=== PATIENT | female | born 1935 | race Caucasian/White ===

== ENCOUNTER 2019-08-29 21:54 | Inpatient (IN) | payer OTHER ==
[~2019-08-29] VITALS: Ht 172.7 cm; Wt 89.8 kg
[2019-08-29 21:55] VITALS: BP_SYST 152
--- NOTE | 2019-08-29 21:55 | NUR ---
Placed in room 4 . Placed on radiation monitor, blood pressure machine and pulse oximeter. To gown for exam. Side rails up.
--- NOTE | 2019-08-29 21:58 | NUR ---
Patient BIB [facility] from [facility] c/o chest pain that lasted about 15 minutes. Pt states she was at home and suddenly felt dizzy and had chest pain, non-radiating, non provoked. 10minutes prior to arriving, chest pain suddenly disappeared. No medications were given en route. Pt denies N/V, fever. Pt came in with 20 gauge to left AC placed by [facility]. NO other injuries/complaints per patient or noted.
[2019-08-29] MEDS ORDERED: AMLO2.5T50 PO (22:17)
[2019-08-29] MEDS ORDERED: ARIP5TAB10 PO (22:18)
[2019-08-29] MEDS ORDERED: CLOP75TA32 PO (22:19)
[2019-08-29] MEDS ORDERED: DICL1KIT TP ×2 (22:20→22:28)
[2019-08-29] MEDS ORDERED: EZET10TA30 PO (22:20)
[2019-08-29] MEDS ORDERED: METO50TA7 PO (22:21)
[2019-08-29] MEDS ORDERED: OXCA300T38 PO (22:21)
[2019-08-29] MEDS ORDERED: OXYB10TA4 PO (22:22)
[2019-08-29] MEDS ORDERED: PARO-41 PO (22:23)
[2019-08-29] MEDS ORDERED: ACET-73 PO (22:25)
[2019-08-29] MEDS ORDERED: DIPH25CA83 PO (22:27)
[2019-08-29] MEDS ORDERED: BISM262O28 PO (22:29)
[2019-08-29] MEDS ORDERED: NITSL SL (22:30)
--- NOTE | 2019-08-29 22:31 | NUR ---
Medication reconciliation completed with information provided by [facility]. Any prior medication reconciliation on file was reviewed and corrected.
[2019-08-29 22:47] LABS: BASOPHILS # (AUTO) 0.1 K/uL (0.0-0.2); BASOPHILS % (AUTO) 1.3 % (0.0-2.0); EOSINOPHILS # (AUTO) 0.2 K/uL (0.0-0.4); EOSINOPHILS % (AUTO) 2.8 % (0.0-4.0); HEMATOCRIT 38.3 % (36-48); HEMOGLOBIN 12.8 g/dL (12.0-16.0); LYMPHOCYTES % (AUTO) 33.5 % (20.5-51.5); MEAN CORPUSCULAR HEMOGLOBIN 29 pg (27-31); MEAN CORPUSCULAR HGB CONC 34 % (32-36); MEAN CORPUSCULAR VOLUME 87 fL (79.0-98.0); MONOCYTES # (AUTO) 0.7 K/uL (0.0-1.0); MONOCYTES % (AUTO) 12.5 % (1.7-9.3); NEUTROPHILS # (AUTO) 2.9 K/uL (1.8-7.7); NEUTROPHILS % (AUTO) 49.9 % (40.0-70.0); PLATELET COUNT (AUTO) 190 K/uL (130-430); RED BLOOD CELL COUNT(AUTO) 4.39 MIL/uL (4.2-6.2); RED CELL DISTRIBUTION WIDTH 13.1 % (9.0-15.0); WHITE BLOOD COUNT (AUTO) 5.9 K/uL (4.8-10.8)
[2019-08-29 23:02] LABS: ANION GAP 8 (5-15); CALCIUM 8.6 mg/dL (8.4-11.0); CHLORIDE 101 mmol/L (98-107); CREATININE 1.02 mg/dL (0.55-1.30); GLUCOSE 110 mg/dL (70-99); POTASSIUM 3.4 mmol/L (3.5-5.1); SODIUM SERUM 138 mmol/L (136-145); UREA NITROGEN, BLOOD 20 mg/dL (8-21)
[2019-08-29 23:06] LABS: ALANINE AMINOTRANSFERASE 25 U/L (12-78); ALBUMIN 3.6 g/dL (3.4-4.8); ASPARTATE AMINOTRANSFERASE 20 U/L (10-37); TOTAL BILIRUBIN 0.2 mg/dL (0.0-1.0)
--- NOTE | 2019-08-30 | NUR ---
ER Dr. Stevens at bedside examining patient.
--- NOTE | 2019-08-30 00:05 | NUR ---
Patient resting comfortably in hospital bed. No acute distress, will continue to monitor.
--- NOTE | 2019-08-30 01:30 | NUR ---
Assisted patient to restroom and [facility]. No acute distress, will continue to monitor.
--- NOTE | 2019-08-30 02:15 | NUR ---
Patient resting comfortably in bed. No acute distress, will continue to monitor.
--- NOTE | 2019-08-30 03:14 | NUR ---
ER Dr. Stevens at bedside re-examining patient.
--- NOTE | 2019-08-30 04:20 | NUR ---
Patient has BP of 191/68. Pt denies chest pain, SOB, dizziness or N/V. Dr. Stevens made aware.
[2019-08-30] MEDS ORDERED: cloNIDine HCL 0.1 MG TABLET PO ONE (04:30)
--- NOTE | 2019-08-30 04:30 | NUR ---
Medication was given, pt tolerated well. No adverse reaction, will continue to monitor.
--- NOTE | 2019-08-30 05:13 | NUR ---
Patient will be admitted to care of Dr. David Lamb. Admitted to Telemetry unit. Belongings list completed. Complete and up to date summary report printed. SBAR report to be given at bedside with opportunity for questions.
--- NOTE | 2019-08-30 05:48 | NUR ---
Patient was moved to bed 8 in hospital bed. Patient will be a TELE hold in the ER.
--- NOTE | 2019-08-30 05:48 | NUR ---
Patient was placed on a wash oil pump operator helper, pulse oximetry, and blood pressure monitor.
--- NOTE | 2019-08-30 06:39 | NUR ---
Patient is resting comfortably in bed. No acute distress, will continue to monitor.
--- NOTE | 2019-08-30 07:06 | NUR ---
Gave report to THUY Duran. All care endorsed.
--- NOTE | 2019-08-30 07:30 | NUR ---
Patient is resting comfortably in bed. No acute distress at this time. Will continue to monitor.
--- NOTE | 2019-08-30 08:24 | NUR ---
Patient ambulated to the bathroom with a steady gait.
--- NOTE | 2019-08-30 09:04 | NUR ---
2D-echo in progress at bedside. Patient tolerating it well.
--- NOTE | 2019-08-30 10:31 | NUR ---
Patient is resting comfortably in bed. No acute distress at this time. Will continue to monitor.
--- NOTE | 2019-08-30 10:43 | NUR ---
Still waiting for a call back from Dr. David Lamb.
--- NOTE | 2019-08-30 10:45 | NUR ---
3rd page for Dr. Lamb.
--- NOTE | 2019-08-30 11:55 | NUR ---
ADMISSION NOTE Received patient from ER via hui, received report from CORTEZ DALEY. Patient admitted with diagnosis of CHEST PAIN. Patient oriented to hospital routine, call light, toileting and safety-patient verbalized understanding.
--- NOTE | 2019-08-30 12:00 | NUR ---
Dr. Lamb, Y rounds assessed patient at bedside, aware of elevated blood pressure, will follow up with any new orders.
[2019-08-30 12:04] VITALS: BP_SYST 163
--- NOTE | 2019-08-30 12:05 | NUR ---
Patient will be admitted to care of Dr. Lamb. Admitted to Telemetry unit. Will go to room 108A. Belongings list completed. Complete and up to date summary report printed. SBAR report given to THUY Shine at bedside with opportunity for questions. Transfer to Tele via ACLS protocol. Registered nurse and corn lab technician present. IV present no signs or symptoms of infiltration.
--- NOTE | 2019-08-30 13:30 | NUR ---
RN rounds patient resting in bed, awake, patient denies pain, denies shortness of breath, reinforced the tape on her IV, patient has no other needs at this time, bed in lowest position, two side rails up, call light within reach, fall and aspiration precautions in place, continuing to monitor.
--- NOTE | 2019-08-30 14:47 | NUR ---
RN rounds patient resting in bed, eyes closed, breathing is even and unlabored, no signs of distress, continuing to monitor, call light is within reach of patient, bed in lowest position, two side rails up, fall precautions in place.
[2019-08-30 16:05] VITALS: BP_SYST 148
--- NOTE | 2019-08-30 16:06 | NUR ---
RN rounds patient resting in bed, awake, denies pain, vital signs taken, provided patient with ice water, no other needs at this time, bed in lowest position, two side rails up, call light within reach, fall and aspiration precautions in place.
--- NOTE | 2019-08-30 18:11 | NUR ---
Dr. Lamb,A rounds assessed patient, new orders for tomorrow noted.
[2019-08-30] MEDS ORDERED: ACETAMINOPHEN 500 MG TABLET PO PRN (18:15)
[2019-08-30] MEDS ORDERED: HYDROcodone/ACETAMIN 10-325 MG TAB PO PRN (18:15)
[2019-08-30] MEDS ORDERED: NITROGLYCERIN 0.4 MG TAB.SUBL SL PRN (18:15)
[2019-08-30] MEDS ORDERED: LORazepam 2 MG/ML VIAL IVP PRN (18:15)
[2019-08-30] MEDS ORDERED: HYDROcodone/ACETAMIN 5-325 MG TAB (NORCO/ VICODIN) PO PRN (18:15)
[2019-08-30] MEDS ORDERED: DICLOFENAC SODIUM TP PRN (18:15)
[2019-08-30] MEDS ORDERED: BISMUTH SUBSALICYLATE 240 ML BOTTLE PO PRN (18:15)
[2019-08-30] MEDS ORDERED: ONDANSETRON HCL 4 MG/2 ML VIAL IVP PRN (18:15)
[2019-08-30] MEDS ORDERED: DIPHENHYDRAMINE HCL 25 MG CAPSULE PO PRN (18:15)
--- NOTE | 2019-08-30 18:22 | NUR ---
Closing note patient resting in bed, awake, denies pain, all needs met, will endorse report to NOC shift nurse, bed in lowest position, two side rails up, call light within patient reach, fall and aspiration precautions in place.
[2019-08-30 20:02] VITALS: BP_SYST 137
[2019-08-30] MEDS: NORMAL SALINE 5 ML DISP.SYRIN IVF SCH (20:35)
[2019-08-30] MEDS: OXcarbazepine 150 MG TABLET(TRILEPTAL) PO SCH (20:35)
[2019-08-30] MEDS ORDERED: METOPROLOL SUCCINATE 50 MG TAB.SR.24H (TOPROL XL) PO SCH (21:00)
[2019-08-30] MEDS ORDERED: DICLOFENAC SODIUM TP SCH (21:00)
--- NOTE | 2019-08-30 21:45 | NUR ---
TRILEPTAL 300 MG po administer for AGITATION ANXIETY & helpful .
[2019-08-30] MEDS ORDERED: NORMAL SALINE 5 ML DISP.SYRIN IVF SCH (22:00)
--- NOTE | 2019-08-31 | NUR ---
NORCO 10/325 MG PO administer for pain GENERAL & HELPFUL .
[2019-08-31 01:00] VITALS: BP_SYST 144
--- NOTE | 2019-08-31 01:45 | NUR ---
Patient assist out of bed ambulates BRP no SOB chest movement symmetrical safety measures implemented & effective .
--- NOTE | 2019-08-31 03:17 | NUR ---
FALL MEASURES implemented call sol given to patient procedures explained SAFETY MEASURES effective .
--- NOTE | 2019-08-31 04:30 | NUR ---
Hourly Rounding patient Resting call sol given to patient chest movement symmetrical self position patient is ambulatory .
[2019-08-31] MEDS: NORMAL SALINE 5 ML DISP.SYRIN IVF SCH (05:51)
[2019-08-31 07:47] LABS: BASOPHILS # (AUTO) 0.1 K/uL (0.0-0.2); EOSINOPHILS # (AUTO) 0.3 K/uL (0.0-0.4); HEMATOCRIT 40.7 % (36-48); HEMOGLOBIN 13.7 g/dL (12.0-16.0); LYMPHOCYTES % (AUTO) 37.8 % (20.5-51.5); MEAN CORPUSCULAR HEMOGLOBIN 29 pg (27-31); MEAN CORPUSCULAR HGB CONC 34 % (32-36); MEAN CORPUSCULAR VOLUME 87 fL (79.0-98.0); MONOCYTES # (AUTO) 0.7 K/uL (0.0-1.0); MONOCYTES % (AUTO) 13.1 % (1.7-9.3); NEUTROPHILS # (AUTO) 2.2 K/uL (1.8-7.7); NEUTROPHILS % (AUTO) 43.1 % (40.0-70.0); PLATELET COUNT (AUTO) 192 K/uL (130-430); RED BLOOD CELL COUNT(AUTO) 4.68 MIL/uL (4.2-6.2); RED CELL DISTRIBUTION WIDTH 13.3 % (9.0-15.0); WHITE BLOOD COUNT (AUTO) 5.2 K/uL (4.8-10.8)
[2019-08-31 07:55] LABS: ANION GAP 5 (5-15); CALCIUM 8.8 mg/dL (8.4-11.0); CHLORIDE 103 mmol/L (98-107); GLUCOSE 94 mg/dL (70-99); POTASSIUM 3.5 mmol/L (3.5-5.1); SODIUM SERUM 138 mmol/L (136-145); UREA NITROGEN, BLOOD 13 mg/dL (8-21)
[2019-08-31 08:00] VITALS: BP_SYST 148
--- NOTE | 2019-08-31 08:00 | NUR ---
Note Pt sitting up in bed eating her breakfast. No SOB/resp distress or chest pain/discomfort was noted at this time. Tele unit attached and intact. IV in left AC intact and patent. Pt ambulates to restroom with steady gait and independently at this time. No needs noted. Call light within reach.
[2019-08-31] MEDS: OXcarbazepine 150 MG TABLET(TRILEPTAL) PO SCH (08:24)
[2019-08-31] MEDS ORDERED: EZETIMIBE 10 MG TABLET PO SCH (09:00)
[2019-08-31] MEDS ORDERED: CLOPIDOGREL BISULFATE 75 MG TABLET PO SCH (09:00)
[2019-08-31] MEDS ORDERED: OXYBUTYNIN CHLORIDE 5 MG XL TAB PO SCH (09:00)
[2019-08-31] MEDS ORDERED: PARoxetine HCL 20 MG TABLET PO SCH (09:00)
[2019-08-31] MEDS ORDERED: OXYBUTYNIN CHLORIDE 5 MG TABLET PO SCH (09:00)
[2019-08-31] MEDS ORDERED: amLODIPine BESYLATE 5 MG TABLET PO SCH (09:00)
--- NOTE | 2019-08-31 10:10 | NUR ---
Note Dr Leila Lamb called and cleared pt to be discharged home today.
--- NOTE | 2019-08-31 10:54 | NUR ---
SS NOTES: HAZARDOUS MATERIAL SPECIALIST was referred by CM to see patient for DCP. Demographic information confirmed (NOK: Lorenzo Lange, son @ [phone], Person to Notify: Koffi Lange, son @ [phone]). HAZARDOUS MATERIAL SPECIALIST met with patient at bedside. Pt was alert and oriented, and cooperative. Pt appeared to be disheveled, normal mood and speech with good eye contact. Pt's affect was appropriate and thought process was intact. Pt is an 83 y/o female who came in for chest pain. Pt is a resident at [facility] for 2 years now. Pt is independent with her ADL's, including driving to/from MD appointments. Pt utilizes a cane to go around the community only, otherwise she is independent with ambulating short distances. Pt's residence provides her with meals 3x/day, laundry and housekeeping. Pt's source of income is her alf, social security and her savings. Pt states she finds support from her sister that lives in [place], but has three other sons for additional support. Pt has an advanced directive and son Lorenzo Lange is her POA. Pt states she has a long history of depression and has "a little bit of depression" currently due to "arguing with staff to get my bladder pills last night". Pt states she asked the RN to get her bladder pills last night but it took a long time to obtain it. Pt denies psych admissions in the past. Pt states her PCP prescribes her with Paxil for her depression. Pt states she kevin with "activities", like "Poker" when she's depressed. Pt denies history or current substance use/abuse/smoking. No further SS needs identified at this time, but will remain available for support.
[2019-08-31 11:20] VITALS: BP_SYST 149
[2019-08-31 11:29] VITALS: BP_SYST 135
--- NOTE | 2019-08-31 11:30 | NUR ---
Note Pt ambulates in hallway with steady gait and no needs noted. Pt informed Dr Leila Lamb has discharged pt from cardiac point of view. Pt's son Norm called and he will pick pt up at 1300 - he is at work. Pt notified. Call light within reach. No needs noted.
--- NOTE | 2019-08-31 12:15 | NUR ---
Note Tele unit dc'd and returned to monitoring analyst. IV in left AC dc'd. Site benign, no swelling/redness/bleeding/drainage noted at this time.
--- NOTE | 2019-08-31 12:41 | NUR ---
DC PLANNING RECEIVED CALL FROM KRISTIN PALOMINO AT PHONE NUMBER [phone] ADVISED CASE WAS BEING APPROVED OBS LEVEL OF CARE ONLY. REQUESTING WHAT IS HOLDING DC ADVISED CARDIOLOGY CONSULT. CM WILL NOTIFY PRIMARY ATTENDING OF INSURANCE DETERMINATION.
--- NOTE | 2019-08-31 14:30 | NUR ---
Note Pt dressed in orange gown and bath robe. Pt's clothes all soiled on admission from ED. Pt packed all belongings and discharge instructions given. Questions/concerns were answered at this time. Pt stable, denies any SOB/resp distress or chest pain/discomfort Pt checked side table and drawers for belongings. Call light within reach.
--- NOTE | 2019-08-31 14:40 | NUR ---
Note Pt off the floor via wheelchair with all her belongings and discharge paperwork, daughter in law by her side to private car. Pt stable, no chest pain/discomfort noted all shift. Addendum: 08/31/19 at 1501 by Sujey Carnes RN Pt was checked on q1' and PRN all shift for needs and care.
[2019-08-31] MEDS ORDERED: ARIPiprazole 5 MG TAB PO SCH (18:00)
== END 2019-08-31 14:40 | disposition home or self-care (01) | DRG 311 ==
LOC: SED 21:54 → STU 08-30 05:10
PROVIDERS: ADMIT Preventive Medicine Preventive Medicine/Occupational Environmental Medicine; ATTEND Preventive Medicine Preventive Medicine/Occupational Environmental Medicine
DX: I24.9 Acute ischemic heart disease, unspecified (principal); E87.6 Hypokalemia; I10 Essential (primary) hypertension; R73.9 Hyperglycemia, unspecified; I25.10 Atherosclerotic heart disease of native coronary artery without angina pectoris; Z82.49 Family history of ischemic heart disease and other diseases of the circulatory system; Z95.1 Presence of aortocoronary bypass graft
CPT/HCPCS: 36415; 71045; 80048; 80053; 82550-TC; 83880; 84484; 85025; 93306; 99285; G0378; Q0163

== ENCOUNTER 2019-11-02 13:51 | Emergency (ER) | payer OTHER ==
[~2019-11-02 13:51] MED LIST: ACET-73 PO; AMLO2.5T50 PO; ARIP5TAB10 PO; BISM262O28 PO; CLOP75TA32 PO; DICL1KIT TP; DIPH25CA83 PO; EZET10TA30 PO; METO50TA7 PO; NITSL SL; OXCA300T38 PO; OXYB10TA4 PO; PARO-41 PO
== END 2019-11-02 14:15 | disposition left against medical advice (07) ==
LOC: SED 13:51
DX: R53.1 Weakness (principal); Z53.21 Procedure and treatment not carried out due to patient leaving prior to being seen by health care provider

== ENCOUNTER 2019-11-02 16:12 | Inpatient (IN) | payer OTHER ==
[~2019-11-02] VITALS: Ht 170.2 cm; Wt 90.7 kg
[2019-11-02 16:30] VITALS: BP_SYST 150
--- NOTE | 2019-11-02 16:45 | NUR ---
ER at bedside examining patient.
--- NOTE | 2019-11-02 16:55 | NUR ---
pt was initially bib via bls d/t gen weak and a cough for a year. Pt called 911 herself, however, did not want to stay in this hospital. Pt's family was notified and convinced her to stay. Family expressed concerns after the pt had a syncopal episode. PT is AAOx3. EKG done and given to MD. Lung sounds a clear. media monitor placed. Will continue to monitor.
[2019-11-02] MEDS ORDERED: ASPIRIN 81 MG TAB.CHEW PO ONE (17:15)
--- NOTE | 2019-11-02 17:20 | NUR ---
# 20 gauge angiocath placed to rac. Use of asceptic technique. Opsite placed over site. Blood return noted. Blood for lab drawn from site. Flushed with 10 cc of normal saline. No evidence of infiltration noted. Patient tolerated well.
--- NOTE | 2019-11-02 17:25 | NUR ---
medicated the pt w/ Aspirin per MD order/ Will reassess
[2019-11-02 17:39] LABS: BASOPHILS % (AUTO) 0.4 % (0.0-2.0); EOSINOPHILS # (AUTO) 0.2 K/uL (0.0-0.4); EOSINOPHILS % (AUTO) 1.7 % (0.0-4.0); HEMOGLOBIN 11.9 g/dL (12.0-16.0); LYMPHOCYTES # (AUTO) 0.8 K/uL (1.0-5.5); LYMPHOCYTES % (AUTO) 8.7 % (20.5-51.5); MEAN CORPUSCULAR HEMOGLOBIN 29 pg (27-31); MEAN CORPUSCULAR HGB CONC 34 % (32-36); MEAN CORPUSCULAR VOLUME 87 fL (79.0-98.0); MONOCYTES # (AUTO) 1.2 K/uL (0.0-1.0); MONOCYTES % (AUTO) 12.8 % (1.7-9.3); NEUTROPHILS # (AUTO) 7.4 K/uL (1.8-7.7); NEUTROPHILS % (AUTO) 76.4 % (40.0-70.0); PLATELET COUNT (AUTO) 173 K/uL (130-430); RED BLOOD CELL COUNT(AUTO) 4.05 MIL/uL (4.2-6.2); RED CELL DISTRIBUTION WIDTH 13.6 % (9.0-15.0); WHITE BLOOD COUNT (AUTO) 9.6 K/uL (4.8-10.8)
[2019-11-02 17:47] LABS: ANION GAP 9 (5-15); CALCIUM 9.1 mg/dL (8.4-11.0); CHLORIDE 89 mmol/L (98-107); CREATININE 1.42 mg/dL (0.55-1.30); GLUCOSE 100 mg/dL (70-99); POTASSIUM 3.5 mmol/L (3.5-5.1); SODIUM SERUM 125 mmol/L (136-145); UREA NITROGEN, BLOOD 38 mg/dL (8-21)
[2019-11-02 18:07] LABS: ASPARTATE AMINOTRANSFERASE 48 U/L (10-37); TOTAL BILIRUBIN 0.9 mg/dL (0.0-1.0)
[2019-11-02 18:08] LABS: ALANINE AMINOTRANSFERASE 37 U/L (12-78); ALBUMIN 2.7 g/dL (3.4-4.8)
--- NOTE | 2019-11-02 18:23 | NUR ---
Medication reconciliation completed with information provided by [facility]. Any prior medication reconciliation on file was reviewed and corrected.
[2019-11-02] MEDS ORDERED: NACL 0.9% 1,000 ML IV ONE (18:30)
--- NOTE | 2019-11-02 19:11 | NUR ---
NS 1L lcurrently infusing per md order.
--- NOTE | 2019-11-02 19:21 | NUR ---
report given to Greg DALEY. Pt is in stable condition. Currently awaiting transfer to [facility] or admission.
--- NOTE | 2019-11-02 19:21 | NUR ---
Marcel sanders in [facility] - 11/02/19 at 1923 by [email or web address] Report received from Debby DALEY
--- NOTE | 2019-11-02 20:00 | NUR ---
Pt resting in ED bed comfortably. No acute distress. Pt mildly confused, re-orientation needed.
--- NOTE | 2019-11-02 20:33 | NUR ---
Pt attempted to get out of bed without assistance. Pt re-directed.
[2019-11-02] MEDS ORDERED: SODIUM CHLORIDE 3% *HI-ALERT* 300 ML IV ONE (22:00)
--- NOTE | 2019-11-02 22:11 | NUR ---
Transfer to TELE via ACLS protocol. Licensed nurse present. IV present no signs or symptoms of infiltration.
--- NOTE | 2019-11-02 22:11 | NUR ---
Patient will be admitted to care of . Admitted to TELE unit. Will go to room 133B. Belongings list completed. Complete and up to date summary report printed. SBAR report to be given at bedside with opportunity for questions.
--- NOTE | 2019-11-02 22:26 | NUR ---
ADMISSION NOTE Received patient from ER via hui, received report from THUY DE. Patient admitted with diagnosis of SYNCOPE, HYPONATREMIA. Patient oriented to hospital routine, call light, toileting and safety-patient verbalized understanding.
--- NOTE | 2019-11-02 22:30 | NUR ---
Initial RN notes Received pt from ED. Pt AAOx3, VSS, afebrile. No s/s distress noted. IVF infusing R. AC 20G clear and patent. Small bruise noted on R. abd, skin intact. Oriented pt to bed/call light use, pt verbalized understanding. Bed low, locked, siderails up x3, alarm on. Safety maintained. To monitor.
[2019-11-02 22:34] VITALS: BP_SYST 151
--- NOTE | 2019-11-02 23:00 | NUR ---
Dr. Galo at bedside to see pt.
[2019-11-02] MEDS ORDERED: DIPHENHYDRAMINE HCL 25 MG CAPSULE PO PRN (23:45)
[2019-11-02] MEDS ORDERED: NITROGLYCERIN 0.4 MG TAB.SUBL SL PRN (23:45)
[2019-11-03] VITALS (7 sets, daily range): BP systolic 140–181
[2019-11-03] MEDS ORDERED: SODIUM CHLORIDE 3% *HI-ALERT* 500 ML IV ONE (00:06)
--- NOTE | 2019-11-03 01:00 | NUR ---
Rounds Pt asleep, easily arousable. Pt moved to Room 121-C. All belongings with pt. To monitor.
--- NOTE | 2019-11-03 02:30 | NUR ---
Rounds/snacks Pt awake, alert, requesting food. Edwards and cranberry juice provided. Pt thankful. HOB elevated. Call light within reach. To monitor.
--- NOTE | 2019-11-03 02:46 | NUR ---
CONSULT: CONSULT CALLED FOR Terrance DAMON I SPOKE WITH MARIANO MEDRANO REASON FOR CONSULT: SYNCOPE REQUESTING CONSULT: DR. DIAZ GUARDIAN AD LITEM PHONE NUMBER: [phone]
--- NOTE | 2019-11-03 02:47 | NUR ---
CONSULT: CONSULT CALLED FOR DR. VALENTINE I SPOKE WITH MARIANO MEDRANO REASON FOR CONSULT: SYNCOPE REQUESTING CONSULT: DR. DIAZ FOREIGN LANGUAGE STENOGRAPHER PHONE NUMBER: [phone]
[2019-11-03] MEDS: ACETAMINOPHEN 500 MG TABLET PO PRN (05:22)
--- NOTE | 2019-11-03 05:24 | NUR ---
Closing notes/Pain med Pt awake, c/o L. sided sharp headache. Medicated with Tylenol 500mg PO. VSS. IVF infusing at ordered rate R. AC 20G clear and patent. Call light within easy reach. Ivan SCDs in place. Safety maintained. Bed low, locked, siderails up x3. Awaiting consults. To endorse to AM nurse.
[2019-11-03 06:23] LABS: BASOPHILS % (AUTO) 0.4 % (0.0-2.0); EOSINOPHILS # (AUTO) 0.2 K/uL (0.0-0.4); EOSINOPHILS % (AUTO) 1.7 % (0.0-4.0); HEMATOCRIT 32.5 % (36-48); HEMOGLOBIN 11.2 g/dL (12.0-16.0); LYMPHOCYTES # (AUTO) 0.7 K/uL (1.0-5.5); LYMPHOCYTES % (AUTO) 6.5 % (20.5-51.5); MEAN CORPUSCULAR HEMOGLOBIN 30 pg (27-31); MEAN CORPUSCULAR HGB CONC 34 % (32-36); MEAN CORPUSCULAR VOLUME 86 fL (79.0-98.0); MONOCYTES # (AUTO) 1.3 K/uL (0.0-1.0); MONOCYTES % (AUTO) 12.3 % (1.7-9.3); NEUTROPHILS # (AUTO) 8.1 K/uL (1.8-7.7); NEUTROPHILS % (AUTO) 79.1 % (40.0-70.0); PLATELET COUNT (AUTO) 166 K/uL (130-430); RED BLOOD CELL COUNT(AUTO) 3.78 MIL/uL (4.2-6.2); RED CELL DISTRIBUTION WIDTH 13.3 % (9.0-15.0); WHITE BLOOD COUNT (AUTO) 10.2 K/uL (4.8-10.8)
--- NOTE | 2019-11-03 06:45 | NUR ---
UA collected and sent to lab.
[2019-11-03 06:55] LABS: ALBUMIN 2.4 g/dL (3.4-4.8); ANION GAP 11 (5-15); CHLORIDE 95 mmol/L (98-107); CREATININE 1.21 mg/dL (0.55-1.30); GLUCOSE 123 mg/dL (70-99); SODIUM SERUM 131 mmol/L (136-145); TOTAL BILIRUBIN 0.8 mg/dL (0.0-1.0); UREA NITROGEN, BLOOD 31 mg/dL (8-21)
[2019-11-03 07:38] LABS: POTASSIUM 2.4 mmol/L (3.5-5.1)
[2019-11-03 07:39] LABS: ALANINE AMINOTRANSFERASE 82 U/L (12-78); ASPARTATE AMINOTRANSFERASE 82 U/L (10-37)
[2019-11-03 07:40] LABS: CHOLESTEROL 158 mg/dL (<200); HDL CHOLESTEROL 19 mg/dL (>55); LDL CHOLESTEROL 78 mg/dL (<100); TRIGLYCERIDES 141 mg/dL (30-150)
--- NOTE | 2019-11-03 08:00 | NUR ---
Note Pt sitting up in bed eating her breakfast. No SOB/resp distress or pain/discomfort noted at this time. Tele unit attached and intact. IV in right AC intact and patent infusing IVF's well at this time. No needs noted at this time. Call light within reach. Pt has SCD's on bilaterally at this time.
[2019-11-03] MEDS: EZETIMIBE 10 MG TABLET PO SCH (08:50)
[2019-11-03] MEDS: CLOPIDOGREL BISULFATE 75 MG TABLET PO SCH (08:50)
[2019-11-03] MEDS: OXcarbazepine 150 MG TABLET(TRILEPTAL) PO SCH ×2 (08:50→21:31)
[2019-11-03 08:51] LABS: BILIRUBIN,URINE NEGATIVE (NEGATIVE); BLOOD, URINE 3+ (NEGATIVE); CLARITY/URINE SL CLOUDY (CLEAR); COLOR,URINE YELLOW (YELLOW); GLUCOSE,URINE NEGATIVE (NEGATIVE); KETONES,URINE NEGATIVE (NEGATIVE); LEUKOCYTE ESTERASE ,URINE 3+ (NEGATIVE); NITRITE, URINE POSITIVE (NEGATIVE); PROTEIN URINE 1+ (NEGATIVE); UROBILINOGEN,URINE 0.2 (0.2-1.0)
[2019-11-03] MEDS: PARoxetine HCL 20 MG TABLET PO SCH (08:51)
[2019-11-03] MEDS: OXYBUTYNIN CHLORIDE 5 MG TABLET PO SCH ×2 (08:56→21:30)
[2019-11-03] MEDS ORDERED: POTASSIUM CHLORIDE 20 MEQ/PKT PACKET PO ONE (09:00)
[2019-11-03] MEDS ORDERED: POTASSIUM CHLORIDE 20 MEQ TAB.PRT.SR PO ONE (09:00)
[2019-11-03] MEDS ORDERED: OXYBUTYNIN CHLORIDE 5 MG XL TAB PO SCH (09:00)
[2019-11-03] MEDS ORDERED: POTASSIUM CHLORIDE 40 MEQ in NS 250 ML IV ONE (09:00)
[2019-11-03 09:01] LABS: BACTERIA,URINE MANY /HPF (None Seen); WBC,URINE 50-80 /HPF (0-3)
--- NOTE | 2019-11-03 09:46 | NUR ---
Nutrition Update Jose Scale 17 noted. Pt admitted for syncope/hyponatremia. Diet: regular, mechanical soft BMI: 31.3 kg/m2 RD to follow per nutrition care standards.
--- NOTE | 2019-11-03 10:40 | NUR ---
Note Pt was taken down to Radiology for CT of head/brain via gurney at 1015am and now back to room/bed. IVF's reapplied. No needs noted at this time. Call light within reach.
--- NOTE | 2019-11-03 11:50 | NUR ---
Note Pt working with Physical Therapy at bedside at this time. Dr Galo was at bedside assessing pt at 1115am - answering questions/concerns at this time. Call light within reach. No needs noted at this time.
[2019-11-03] MEDS ORDERED: BENZOCAINE/MENTHOL 1 EACH LOZENGE MM PRN (12:15)
--- NOTE | 2019-11-03 13:55 | NUR ---
Note Pt having US of carotids at bedside at this time. Pt denies any needs. Call light within reach.
[2019-11-03] MEDS: ARIPiprazole 5 MG TAB PO SCH (17:22)
--- NOTE | 2019-11-03 18:20 | NUR ---
Note Pt ate her dinner and now resting in bed. Tele unit attached and intact at this time. IV in right AC intact and patent infusing IVF's well. No SOB/resp distress or pain/discomfort noted at this time. Pt was checked on q1' and PRN all shift for needs and care. No needs noted at this time. Call light within reach.
--- NOTE | 2019-11-03 19:15 | NUR ---
change of shift.pt.presents quiescent affect;calm,resting pt.presents iv access intact;patent iv fluids;ns:3% infusing. general status stable.respiratory status stable;unlabored@room air.call light/telephone w/in reach of the pt.
--- NOTE | 2019-11-03 20:00 | NUR ---
pt.assessed.v/s assessed values w/in normal limits.no c/o pain,nausea.pt.assessed for cleanliness.pt.presents incontinence ;urine.pt.cleaned.pt.repositioned.iv access intact;patent;ns:3% infusing.general status stable.respiratory status stable; unlabored @room air.i have apprised the pt.that snacks/beverages are available w/in the shift.no requests posited@this hour.call light/ telephone phone placed w/in reach of the pt.
--- NOTE | 2019-11-03 21:00 | NUR ---
2100pmedications administered.pt.capable to ingest medication absent difficulty.i noted pt.ordered the medication trileptal;300mg po. i have attended to the sx precautions;padded the side rails.i have apprised the pt.of the intervention.i have applied the scd's compression stockings.i have apprised the of the indication for the intervention.no c/o pain,nausea.
[2019-11-03] MEDS: POTASSIUM CHLORIDE 20 MEQ TAB.PRT.SR PO SCH (21:30)
[2019-11-03] MEDS: METOPROLOL SUCCINATE 50 MG TAB.SR.24H (TOPROL XL) PO SCH (21:31)
--- NOTE | 2019-11-03 22:00 | NUR ---
pt.assessed.pt.presents quiescent affect;calm,somnolent.pt.assessed for cleanliness.pt.repositioned.iv fluid:ns:3% administration completed. general status stable.respiratory status stable;unlabored.call light/telephone placed w/in reach of the pt.
--- NOTE | 2019-11-04 | NUR ---
pt.assessed.v/s assessed;values w/in normal limits.pt.assessed for cleanliness.pt.presents incontinence;urine.pt.cleaned. pt repositioned. general status stable.respiratory status stable;unlabored.call light/telephone placed w/in reach of the pt.
[2019-11-04 00:49] VITALS: BP_SYST 156
--- NOTE | 2019-11-04 01:00 | NUR ---
pt.assisted oob;to bsc/chair.pt.presents change in affect;restless.pt.requested to be assisted:oob.lower extremity weakness. fall precautions noted.explained to the pt.pt.insisted to be allowed oob.pt.assisted oob/ returned to bed. paged re;pt's change in status.
[2019-11-04] MEDS ORDERED: MILK OF MAGNESIA 30 ML UDC PO PRN (01:15)
[2019-11-04] MEDS ORDERED: BISACODYL 5 MG TABLET.DR (DULCOLAX) PO PRN (01:15)
--- NOTE | 2019-11-04 02:00 | NUR ---
pt.assessed.pt.requested assistance oob/bsc.i have assisted the pt.oob/bsc. had returned the page.i appprised of the pt's change in status. ordered;ambien;10mg po qhs/prn;sleep.mom,:60ml po daily/prn;constipatiuon,dulcolax;10mg po;daily/ prn constipation,i have administered the medications.pt.assisted returned to bed.pt repositioned.
--- NOTE | 2019-11-04 02:30 | NUR ---
pt.assessed.pt.presents congested chest sounds;lugs auscultated;pt.stated she may require o2 therapy.o2-sat%=96% @room iar. paged.i have apprised of the pt's respiratory status. has ordered hhn:duo-neb qid q-4hrs;prn;sob,wheezes.pt.had requested robitussin ;cough. has ordered robitussin;10ml po q-6hrs/prn.
[2019-11-04] MEDS: ZOLPIDEM TARTRATE 5 MG TABLET PO PRN (02:34)
[2019-11-04] MEDS ORDERED: IPRATROPIUM/ALBUTEROL SULFATE 3 ML AMPUL.NEB (DUONEB) ONE (03:07)
[2019-11-04] MEDS: IPRATROPIUM/ALBUTEROL SULFATE 3 ML AMPUL.NEB (DUONEB) INH SCH ×6 (03:15→23:00)
[2019-11-04 03:21] VITALS: BP_SYST 140
--- NOTE | 2019-11-04 04:00 | NUR ---
pt.assessed.pt.presents quiescent affect;calm,somnolent pt.assessed for cleanliness.pt.repositioned.general status stable.respiratory status stable.o2-therapy applied;via nasal cannulae@the rate2l/min.hhn;duo-neb was administered. breathing pattern/character,sounds auscultated.improved.call light/telephone placed w/in the reach of the pt.
[2019-11-04 05:55] LABS: ALANINE AMINOTRANSFERASE 110 U/L (12-78); ALBUMIN 2.5 g/dL (3.4-4.8); ANION GAP 8 (5-15); ASPARTATE AMINOTRANSFERASE 80 U/L (10-37); CALCIUM 8.6 mg/dL (8.4-11.0); CHLORIDE 100 mmol/L (98-107); CREATININE 1.23 mg/dL (0.55-1.30); GLUCOSE 128 mg/dL (70-99); POTASSIUM 3.4 mmol/L (3.5-5.1); SODIUM SERUM 135 mmol/L (136-145); TOTAL BILIRUBIN 0.8 mg/dL (0.0-1.0); UREA NITROGEN, BLOOD 24 mg/dL (8-21)
--- NOTE | 2019-11-04 06:39 | NUR ---
pt.assessed.pt.presents quiescent affect;calm,somnolent.pt.assessed for cleanliness.pt.repositioned.general status stable.respiratory status stable;unlabored;02-sat%=96%@2l/min via nasal cannnulae.call light/telephone placed w/in reach of the pt.
[2019-11-04 06:59] LABS: BASOPHILS % (AUTO) 0.2 % (0.0-2.0); EOSINOPHILS # (AUTO) 0.1 K/uL (0.0-0.4); EOSINOPHILS % (AUTO) 0.7 % (0.0-4.0); HEMATOCRIT 34.3 % (36-48); HEMOGLOBIN 11.6 g/dL (12.0-16.0); LYMPHOCYTES # (AUTO) 0.7 K/uL (1.0-5.5); LYMPHOCYTES % (AUTO) 6.1 % (20.5-51.5); MEAN CORPUSCULAR HEMOGLOBIN 30 pg (27-31); MEAN CORPUSCULAR HGB CONC 34 % (32-36); MEAN CORPUSCULAR VOLUME 87 fL (79.0-98.0); MONOCYTES # (AUTO) 1.4 K/uL (0.0-1.0); NEUTROPHILS # (AUTO) 8.6 K/uL (1.8-7.7); PLATELET COUNT (AUTO) 189 K/uL (130-430); RED BLOOD CELL COUNT(AUTO) 3.92 MIL/uL (4.2-6.2); RED CELL DISTRIBUTION WIDTH 13.8 % (9.0-15.0); WHITE BLOOD COUNT (AUTO) 10.7 K/uL (4.8-10.8)
[2019-11-04 08:00] VITALS: BP_SYST 152
--- NOTE | 2019-11-04 08:00 | NUR ---
RN INITIAL NOTES RECEIVE DPATIENT IN BED ALERT ABLE TO ANSWER QUESTIONS , NO IV ACCESS , RESP EVEN AND UNLABORED
[2019-11-04] MEDS: PARoxetine HCL 20 MG TABLET PO SCH (08:50)
[2019-11-04] MEDS: CLOPIDOGREL BISULFATE 75 MG TABLET PO SCH (08:50)
[2019-11-04] MEDS: POTASSIUM CHLORIDE 20 MEQ TAB.PRT.SR PO SCH ×2 (08:50→20:51)
[2019-11-04] MEDS: OXcarbazepine 150 MG TABLET(TRILEPTAL) PO SCH ×2 (08:50→20:50)
[2019-11-04] MEDS: OXYBUTYNIN CHLORIDE 5 MG TABLET PO SCH ×2 (08:50→20:50)
[2019-11-04] MEDS: EZETIMIBE 10 MG TABLET PO SCH (08:50)
--- NOTE | 2019-11-04 10:00 | NUR ---
ROUNDS PATIENT ASLEEP AFTER BEING HELPED AND CLEANED
--- NOTE | 2019-11-04 12:00 | NUR ---
DR JOE MARTÍNEZ ROUNDS ORDERS NOTED ASND WILL GIVE ONCE VERIFIED
[2019-11-04 12:20] VITALS: BP_SYST 129
[2019-11-04] MEDS ORDERED: LACTOBACILLUS RHAMNOSUS GG 1 CAP CAPSULE PO ONE (12:30)
[2019-11-04] MEDS ORDERED: LEVOFLOXACIN 250 MG TABLET PO ONE (12:30)
[2019-11-04] MEDS: cefTRIAXone 1 GM in D5W 50 ML IV SCH (13:25)
[2019-11-04] MEDS: guaiFENesin 200 MG/10 ML UDC PO PRN (13:42)
--- NOTE | 2019-11-04 13:48 | NUR ---
ROUNDS PATIENT GIVEN COUGH MEDS
--- NOTE | 2019-11-04 15:18 | NUR ---
ATTENDING MD DR DIAZ WAS CALLED RE: INCREASING BP. SPOKE TO SINA
--- NOTE | 2019-11-04 15:42 | NUR ---
CLONIDINE BP READINGS IS HIGH DR DIAZ WAS CALLED AND CLONIDINE ORDERED , PHARMACY WILL VERIFY
[2019-11-04] MEDS: cloNIDine HCL 0.2 MG TABLET PO PRN (15:52)
[2019-11-04 16:15] VITALS: BP_SYST 162
--- NOTE | 2019-11-04 16:42 | NUR ---
BP RECHECK BP DOWN TO 152/100 AFTER CLONIDINE
[2019-11-04] MEDS: ARIPiprazole 5 MG TAB PO SCH (17:03)
--- NOTE | 2019-11-04 17:07 | NUR ---
MRSA NARES POSITIVE MD PAGED FOR MRSA NARES POSITIVE , WILL BE PLACED ON CONTACT ISOLATION Addendum: 11/04/19 at 1841 by Clarice Alcantara RN ERROR IN CHARTING BELONG TO ANOTHER PATIENT
--- NOTE | 2019-11-04 18:41 | NUR ---
END RN NOTES WILL CONT CARE PATIENT WILL CONT WITH BP MONITORING , PATIENT NO AR/SE TO ATB GIVEN , PATIENT IS COOPERATIVE IN HER CARE , DR DIAZ AWARE OF THE PATIENT CONDITION, NO DISTRESS, NO COMPLAIN OF PAIN THE WHOLE SHIFT, IN STABLE CONDITION
--- NOTE | 2019-11-04 19:35 | NUR ---
Initial note: Rec'd report from dayshift RN. Patient is awake in bed, no acute distress. Alert and oriented x4, tolerating 2L NC. IV site patent and intact. Call light with patient. Safety, fall, seizure precautions in place. Will continue with plan of care.
[2019-11-04 20:45] VITALS: BP_SYST 128
[2019-11-04] MEDS: LACTOBACILLUS RHAMNOSUS GG 1 CAP CAPSULE PO SCH (20:50)
[2019-11-04] MEDS: METOPROLOL SUCCINATE 50 MG TAB.SR.24H (TOPROL XL) PO SCH (20:51)
--- NOTE | 2019-11-04 21:20 | NUR ---
Rounds: Patient is awake watching TV. No acute distress. Denies pain, shortness of breath. Call light with patient. Will continue to monitor.
[2019-11-05] VITALS (7 sets, daily range): BP systolic 123–177
--- NOTE | 2019-11-05 00:41 | NUR ---
Rounds: Patient is resting in bed, no acute distress. Even, unlabored respirations on 2L NC. Patient tolerating current oxygenation therapy well. Call light with patient. Will continue to monitor.
[2019-11-05] MEDS: IPRATROPIUM/ALBUTEROL SULFATE 3 ML AMPUL.NEB (DUONEB) INH SCH ×6 (03:28→23:48)
[2019-11-05] MEDS: ACETAMINOPHEN 500 MG TABLET PO PRN (03:47)
--- NOTE | 2019-11-05 03:47 | NUR ---
Headache: Patient is awake, complaining of a headache 3/10. PRN APAP 500 MG administered per MD order. Education provided regarding indications, side effects. Patient verbalized understanding. Call light is with patient. Will continue monitoring.
--- NOTE | 2019-11-05 05:48 | NUR ---
Rounds: Patient is resting comfortably in bed. No acute distress. Tolerating 3L NC. Call light with patient. Will continue to monitor.
[2019-11-05 06:06] LABS: HEPATITIS A AB, IgM Negative (Negative); HEPATITIS B CORE AB, IgM Negative (Negative); HEPATITIS B SURFACE AG Negative (Negative)
[2019-11-05 06:27] LABS: ANION GAP 3 (5-15); CALCIUM 8.7 mg/dL (8.4-11.0); CHLORIDE 101 mmol/L (98-107); CREATININE 1.58 mg/dL (0.55-1.30); GLUCOSE 106 mg/dL (70-99); POTASSIUM 4.7 mmol/L (3.5-5.1); SODIUM SERUM 131 mmol/L (136-145); UREA NITROGEN, BLOOD 27 mg/dL (8-21)
--- NOTE | 2019-11-05 06:27 | NUR ---
Closing note: Patient is awake in bed, no acute distress. Even, unlabored respirations on 3L NC. IV site patent and intact. All needs met. Will endorse care to pratima DALEY. Addendum: 11/05/19 at 0648 by Baljinder Mathew RN Correction: patient is on 2L NC.
--- NOTE | 2019-11-05 07:14 | NUR ---
PAGED PAGED AARON PUENTE AT [phone] SPOKE WITH GENE.
--- NOTE | 2019-11-05 08:00 | NUR ---
RN INITIAL NOTES RECEIVED PATIENT IN BED ALERT AWAKE AND ANXIOUS NO DISTRESS BUT BP IS HI , WILL CONT CARE , BREATHING TX DONE AND WHEEZING LESSENED AFTER BREATHING TREATMENT
[2019-11-05] MEDS: PARoxetine HCL 20 MG TABLET PO SCH (08:01)
[2019-11-05] MEDS: EZETIMIBE 10 MG TABLET PO SCH (08:03)
[2019-11-05] MEDS: LACTOBACILLUS RHAMNOSUS GG 1 CAP CAPSULE PO SCH ×2 (08:03→22:06)
[2019-11-05] MEDS: OXcarbazepine 150 MG TABLET(TRILEPTAL) PO SCH ×2 (08:04→22:06)
[2019-11-05] MEDS: cloNIDine HCL 0.2 MG TABLET PO PRN (08:04)
[2019-11-05] MEDS: guaiFENesin 200 MG/10 ML UDC PO PRN (08:05)
[2019-11-05] MEDS: POTASSIUM CHLORIDE 20 MEQ TAB.PRT.SR PO SCH (08:08)
[2019-11-05] MEDS: OXYBUTYNIN CHLORIDE 5 MG TABLET PO SCH ×2 (08:08→22:06)
[2019-11-05] MEDS: CLOPIDOGREL BISULFATE 75 MG TABLET PO SCH (08:08)
[2019-11-05] MEDS: LEVOFLOXACIN 250 MG TABLET PO SCH (09:26)
--- NOTE | 2019-11-05 11:32 | NUR ---
DC Planning: Updated clinical status to almas Hussein at [facility] : the pt is not stable for dc today. Pending: EEG for Syncopal episode rule out seizure episode, PT eval, NA and K improved . Per Jovita: if pt dc during weekend and need assistance, may call almas Hutchinson at # [phone].
--- NOTE | 2019-11-05 12:00 | NUR ---
EEG DONE PATIENT NO DISTRESS , EXPLAINED PLAN OF CARE BP DOWN TO 134/64 AFTER CLONIDINE GIVEN
--- NOTE | 2019-11-05 14:00 | NUR ---
DR DIAZ ROUNDS PATIENT SEEN BY MD DISCUSSED PATIENT CONDITION , PATIENT EEG DONE PENDING , PER MD TO FOLLOW UP WITH DR SAUCEDO (NEUROLOGIST) PATIENT WAS LAZY WALKING WITH PT TODAY
[2019-11-05] MEDS: cefTRIAXone 1 GM in D5W 50 ML IV SCH (14:28)
--- NOTE | 2019-11-05 15:12 | NUR ---
CONSULTATION PAGED REASON FOR CONSULTATION:AB LFT WAS CONSULT CALLED?Y PERSON WHO WAS NOTIFIED:DEANNE CONSULTING PHYSICIAN:EDWIN JOEL NEUROPSYCHOLOGY MEDICAL CONSULTANT SPECIALTY:GI C`ONSULTANT PHONE NUMBER:[phone] REQUESTING PHYSICIANAARON PUENTE
--- NOTE | 2019-11-05 15:14 | NUR ---
CONSULTATION PAGED REASON FOR CONSULTATION:DEPRESSION WAS CONSULT CALLED?Y PERSON WHO WAS NOTIFIED:THOR CONSULTING PHYSICIAN:,ESTEVAN CAPACITOR INSPECTOR SPECIALTY:PSYCH C`ONSULTANT PHONE NUMBER:[phone] REQUESTING PHYSICIAN:[facility]
--- NOTE | 2019-11-05 15:15 | NUR ---
Discharge Planning: DCP faxed pt referral to [facility] (f [phone] p [phone]) DCP to follow up
[2019-11-05] MEDS: ARIPiprazole 5 MG TAB PO SCH (16:59)
--- NOTE | 2019-11-05 19:15 | NUR ---
change of shift.pt.presents quiescent affect;calm,resting viewing tv programing.no c/o pain,nausea.pt.presents high risk;fall.precaution noted. bed alarm on,side rails x3 positioned.pt.educated to call nsg for assistance;press red-button /remote.general status stable.respiratory status stable;unlabored.o2 therapy administered @2l./min via nasal cannulae.
--- NOTE | 2019-11-05 19:30 | NUR ---
ENDORSEMENT ENDORSED PATIENT IN STABLE CONDITION WITH PHILIPPE, PATIENT WAS SEEN BY DR WOOD (GI) BEC OF ABNORMAL LFT AND INFORMED MD THAT PATIENT SAID SHE FELT LIKE SHE CANT SWALLOW GOOD BEC SHE IS COUGHING, MD WILL DO FURTHER STUDY , PATIENT ATE HER DINNER WITH NO ASPIRATION ,IV ATB GIVEN AND TOLERATED , SON WAQAS CALLED AND UNDERSIGNED LEFT MESSAGE TO DR DIAZ TO CALL THE SON IN AM, PATIENT ABLE TO STAND UP NEXT TO BSC , STANDBY ASSIST .
--- NOTE | 2019-11-05 20:00 | NUR ---
pt.assessed.v/s assessed:values w/in normal limits.no c/o pain,nausea.pt.assessed for cleanliness.pt.repositioned.iv access intact;patent.iv lock. i have apprised the pt.that snacks/beverages may be provided w/in the shift.no requests posited@this hour.general status stable.respiratory status stable;unlabored.02-sat%=96%.call light/telephone placed w/in reach of the pt.
--- NOTE | 2019-11-05 21:00 | NUR ---
2100pmedications administered.pt.capable to ingest the medications w/out difficulty.i have apprised the pt.that i have administered ambien:10mg po;per the pt's requests medication;sleep.no additional requests posited@this hour.
--- NOTE | 2019-11-05 22:00 | NUR ---
pt.assessed.pt.presents quiescent affect;calm,somnolent.pt.assessed for cleanliness.pt.repositioned.iv access intact; patent. general status stable.respiratory status stable;unlabored:02-fri%=96%.call light/telephone placed w/in reach of the pt. Addendum: 11/06/19 at 0209 by Bruce Flores RN per flacc;pain-mgx;pt;absent facial grimaces/body posturing.
[2019-11-05] MEDS: METOPROLOL SUCCINATE 50 MG TAB.SR.24H (TOPROL XL) PO SCH (22:07)
[2019-11-05] MEDS: ZOLPIDEM TARTRATE 5 MG TABLET PO PRN (22:07)
--- NOTE | 2019-11-06 | NUR ---
pt.assessed.v/s assessed;values w/in normal limits.pt.presents quiescent affect;calm,somnolent.pt.assessed for cleanliness.pt.repositioned. no c/o pain,nausea.iv access intact;patent;iv lock.general status stable.respiratory status stable;unlabored;o2- sat%=96%. call light/telephone placed w/in reach of the pt. Addendum: 11/06/19 at 0210 by Bruce Flores RN per flacc;pain-mgx;pt.absent facial grimaces/body posturing.
[2019-11-06 00:14] VITALS: BP_SYST 140
--- NOTE | 2019-11-06 02:00 | NUR ---
pt.assessed.pt.presents quiescent affect;calm,somnolent.pt.assessed for cleanliness.pt.repositioned.general status stable.respiratory status stable;unlabored.02-sat%=96%.per flacc;pain-mgx;pt.absent facial grimaces/body posturing. call light/telephone placed w/in reach of the pt.
[2019-11-06] MEDS: IPRATROPIUM/ALBUTEROL SULFATE 3 ML AMPUL.NEB (DUONEB) INH SCH ×4 (03:20→15:34)
--- NOTE | 2019-11-06 04:00 | NUR ---
pt.ased pt.prst quiescetn affctc;a;lm,somnnlent.pt.ass foer c;enmlienss.ptrrwsositiond.per flacc pain-mgxa;pt absent facial grimaces/body psotuirng.genral statu stabe.resoiratprt stsu stebl;unalbored;sat5=96%.iv acces inatct ;patbnet ivlock. general statu stable.
[2019-11-06 05:30] LABS: BASOPHILS # (AUTO) 0.1 K/uL (0.0-0.2); EOSINOPHILS # (AUTO) 0.5 K/uL (0.0-0.4); EOSINOPHILS % (AUTO) 4.8 % (0.0-4.0); HEMOGLOBIN 10.3 g/dL (12.0-16.0); LYMPHOCYTES % (AUTO) 9.2 % (20.5-51.5); MEAN CORPUSCULAR HEMOGLOBIN 29 pg (27-31); MEAN CORPUSCULAR HGB CONC 33 % (32-36); MEAN CORPUSCULAR VOLUME 88 fL (79.0-98.0); MONOCYTES # (AUTO) 1.2 K/uL (0.0-1.0); MONOCYTES % (AUTO) 10.2 % (1.7-9.3); NEUTROPHILS # (AUTO) 8.4 K/uL (1.8-7.7); NEUTROPHILS % (AUTO) 74.8 % (40.0-70.0); PLATELET COUNT (AUTO) 240 K/uL (130-430); RED BLOOD CELL COUNT(AUTO) 3.54 MIL/uL (4.2-6.2); RED CELL DISTRIBUTION WIDTH 14.1 % (9.0-15.0); WHITE BLOOD COUNT (AUTO) 11.3 K/uL (4.8-10.8)
[2019-11-06 05:40] LABS: ALANINE AMINOTRANSFERASE 80 U/L (12-78); ALBUMIN 2.3 g/dL (3.4-4.8); ANION GAP 8 (5-15); ASPARTATE AMINOTRANSFERASE 48 U/L (10-37); CALCIUM 8.4 mg/dL (8.4-11.0); CHLORIDE 96 mmol/L (98-107); CREATININE 1.54 mg/dL (0.55-1.30); GLUCOSE 102 mg/dL (70-99); INR 1.1 (0.8-1.2); POTASSIUM 4.4 mmol/L (3.5-5.1); PROTHROMBIN TIME 11.1 SECS (9.5-12.5); SODIUM SERUM 131 mmol/L (136-145); TOTAL BILIRUBIN 0.5 mg/dL (0.0-1.0); UREA NITROGEN, BLOOD 27 mg/dL (8-21)
--- NOTE | 2019-11-06 06:10 | NUR ---
pt.assessed.pt.presents quiescent affect;calm,somnolent.pt.assessed for cleanliness.pt.repositioned.per flacc pain-mgx;pt. absent facial grimaces/body posturing.general status stable.respiratory status stable;unlabored:02-sat%=96%.call light/telephone placed w/in reach of the pt.
--- NOTE | 2019-11-06 07:25 | NUR ---
OPENING NOTE Patient resting in the bed. No acute distress. On O2 2L/min via NC. Skin warm and dry to touch. SL intact to RAC, no redness, no swelling, patent. Discussed the safety issue, use call light when needs help, and plan of care, verbally understanding. Safety measure maintained. Call light within reached. Bed locked in low position, side rails up, bed alarm on. Will continue to monitor.
[2019-11-06 07:55] VITALS: BP_SYST 139
--- NOTE | 2019-11-06 09:02 | NUR ---
SEEN AND EXAMINED BY DR. [facility].
[2019-11-06] MEDS: OXYBUTYNIN CHLORIDE 5 MG TABLET PO SCH (09:05)
[2019-11-06] MEDS: LEVOFLOXACIN 250 MG TABLET PO SCH (09:05)
[2019-11-06] MEDS: OXcarbazepine 150 MG TABLET(TRILEPTAL) PO SCH (09:05)
[2019-11-06] MEDS: EZETIMIBE 10 MG TABLET PO SCH (09:05)
[2019-11-06] MEDS: PARoxetine HCL 20 MG TABLET PO SCH (09:05)
[2019-11-06] MEDS: LACTOBACILLUS RHAMNOSUS GG 1 CAP CAPSULE PO SCH (09:05)
[2019-11-06] MEDS: CLOPIDOGREL BISULFATE 75 MG TABLET PO SCH (09:05)
--- NOTE | 2019-11-06 09:21 | NUR ---
Case mgt: DCP: Per PT notes, pt amb 35 ft yesterday--per nurse Milagros, pt swallowing pills ok and verbalizing she wants to return to [facility] instead of [facility]. Milagros is f/u on EEG order-- RN
--- NOTE | 2019-11-06 09:24 | NUR ---
AM SCHEDULE MED GIVEN Am schedule PO med given, patient tolerated well. No swallow problem noted at this time, took one pill each time. No acute distress. Continue on O2 2L/min via NC. Safety measure maintained. Call light within reached. Bed locked in low position, side rails up, bed alarm on. Will continue to monitor.
--- NOTE | 2019-11-06 09:45 | NUR ---
PT SERVICES PT ambulated the patient, tolerated well. Transferred the patient to sit on the chair at bedside. No acute distress. Continue on O2 2L/min via NC. Safety measure maintained. Call light within reached. Continue to monitor.
--- NOTE | 2019-11-06 11:05 | NUR ---
ASSISTED TO TRANSFER THE PATIENT BACK TO BED Assisted patient back to bed. No acute distress. Continue on O2 2L/min via NC. Safety measure maintained. Call light within reached. Bed locked in low position, side rails up, bed alarm on. Continue to monitor.
[2019-11-06 12:00] VITALS: BP_SYST 151
--- NOTE | 2019-11-06 13:15 | NUR ---
ROUND Patient resting in the bed and watching TV. No acute distress. Continue on O2 2L/min via NC. Safety measure maintained. Call light within reached. Bed locked in low position, side rails up, bed alarm on. Continue to monitor.
[2019-11-06] MEDS: cefTRIAXone 1 GM in D5W 50 ML IV SCH (13:33)
--- NOTE | 2019-11-06 15:22 | NUR ---
ROUND Patient resting in the bed. No acute distress. Continue on O2 2L/min via NC. Safety measure maintained. Call light within reached. Bed locked in low position, side rails up, bed alarm on. Continue to monitor.
[2019-11-06] MEDS: guaiFENesin 200 MG/10 ML UDC PO PRN (15:30)
[2019-11-06 16:00] VITALS: BP_SYST 145
--- NOTE | 2019-11-06 16:42 | NUR ---
Dietitian Recommendations * Recommend mechanical soft diet w/ Ensure Enlive BID (ONS provides 700 kcal/day, 40 gm protein/day) VERITO, RD Please refer to Nutrition Assessment for details. Addendum: 11/06/19 at [address] Amended: Links added.
[2019-11-06] MEDS ORDERED: CIPR-172 PO (16:54)
--- NOTE | 2019-11-06 16:55 | NUR ---
SEEN AND EXAMINED BY AARON MEJÍA WITH DISCHARGE ORDER RECEIVED.
[2019-11-06] MEDS ORDERED: LACT1POW8 MC (16:56)
--- NOTE | 2019-11-06 16:58 | NUR ---
RECEIVED THE CALLED FROM THE FAMILY Received the call from the patient's [id number] Criselda. Per Cirselda, [facility] required the hospital nurse to call their nurse when the patient ready to discharge. They need to assess the patient before back to [facility].
--- NOTE | 2019-11-06 17:05 | NUR ---
CALLED [facility], SPOKE WITH GRECIA ([employer]). PER GRECIA WILL CALL THE NURSE CHOCO AND WAITED TO CALL BACK.
--- NOTE | 2019-11-06 17:25 | NUR ---
RECEIVED THE CALL BACK FROM CHOCO Per Choco, the patient needs a doctor's note regarding not to expose to coronavirus in the hospital. Otherwise, not accepting the patient to go back to [facility]. Talked to Dr. Galo, and Dr. Galo talked to Choco via phone.
[2019-11-06 17:31] VITALS: BP_SYST 142
--- NOTE | 2019-11-06 18:05 | NUR ---
FAXED THE PAPER FROM DR. DIAZ WITH SIGNATURE FOR DISCHARGE SUMMARY WHICH INCLUDED THE PATIENT NOT EXPOSED COVID 19.
--- NOTE | 2019-11-06 18:10 | NUR ---
CALLED [facility]OCO TO CONFIRM SHE RECEIVED THE FAX AND ACCEPT THE PATIENT BACK TO [facility].
[2019-11-06] MEDS: ARIPiprazole 5 MG TAB PO SCH (18:27)
--- NOTE | 2019-11-06 19:00 | NUR ---
D/C Patient Patient given medication reconciliation form and D/C instructions. Exit Care provided. Patient verbalized understanding. MD discussed with patient the results and treatment provided. Ambulatory with steady gait for discharge to home. Patient in stable condition, ID band removed. IV catheter removed, intact and dressing applied, no active bleeding. E-prescription sent to [facility]. Patient and the son educated on medication regimen, follow up appointment, no alcohol beverage, verbally understanding. All belongings sent with patient.
[2019-11-07 09:06] LABS: HEPATITIS B CORE AB, TOTAL Negative (Negative); HEPATITIS B SURFACE AG Negative (Negative); HEPATITIS C VIRUS AB <0.1 s/co ratio (0.0-0.9)
[2019-11-07 13:56] LABS: FERRITIN 535 ng/mL (15-150)
[2019-11-09 09:19] LABS: LIVER-KIDNEY MICROSOMAL AB 0.8 Units (0.0-20.0)
[2019-11-09 11:07] LABS: ANTI-SMOOTH MUSCLE AB 6 Units (0-19)
[2019-11-09 19:06] LABS: ANTI NUCLEAR AB WITH REFLEX Negative (Negative)
== END 2019-11-06 19:00 | disposition home or self-care (01) | DRG 640 ==
LOC: SED 16:12 → STU 22:11 → SMU 11-06 10:33
PROVIDERS: ADMIT Internal Medicine; ATTEND Internal Medicine
DX: E87.1 Hypo-osmolality and hyponatremia (principal); N17.0 Acute kidney failure with tubular necrosis; N39.0 Urinary tract infection, site not specified; E44.0 Moderate protein-calorie malnutrition; I95.1 Orthostatic hypotension; E87.6 Hypokalemia; E11.9 Type 2 diabetes mellitus without complications; I10 Essential (primary) hypertension; I25.10 Atherosclerotic heart disease of native coronary artery without angina pectoris; R13.10 Dysphagia, unspecified; R56.9 Unspecified convulsions; M19.90 Unspecified osteoarthritis, unspecified site; E66.9 Obesity, unspecified; F32.9 Major depressive disorder, single episode, unspecified; D64.9 Anemia, unspecified; J20.9 Acute bronchitis, unspecified; I65.29 Occlusion and stenosis of unspecified carotid artery; E86.0 Dehydration; Z86.73 Personal history of transient ischemic attack (TIA), and cerebral infarction without residual deficits; Z90.710 Acquired absence of both cervix and uterus; Z95.1 Presence of aortocoronary bypass graft; Z79.899 Other long term (current) drug therapy; Z68.31 Body mass index [BMI] 31.0-31.9, adult
CPT/HCPCS: 36415; 70450-TC; 71045; 76700-TC; 80048; 80053; 80061; 80074; 81000-TC; 82550-TC; 82607; 82728; 83516; 83735-TC; 83880; 84439; 84443-TC; 84484; 85025; 85610-TC; 86038; 86376; 86704; 86708; 86803; 87081; 87340; 93005; 93880; 94640; 94760; 95816; 96360; 97110-GP; 97116-GP; 97530-GP; 99285; G0378; J0696; J3480; J3490; J7030; J7050; J7060